=== PATIENT | female | born 1955 | race Hispanic/Latino ===

== ENCOUNTER 2024-03-15 14:20 | Outpatient (CLI) | payer BC | END 2024-03-15 14:21 | disposition home or self-care (01) | LOC: CSHCT 14:20 | PROVIDERS: ATTEND Family Medicine | DX: R31.0 Gross hematuria (principal); Z87.442 Personal history of urinary calculi; N20.0 Calculus of kidney; K44.9 Diaphragmatic hernia without obstruction or gangrene | CPT/HCPCS: 74176 ==

== ENCOUNTER 2024-12-20 14:54 | Outpatient (CLI) | payer BC | END 2024-12-20 14:55 | disposition home or self-care (01) | LOC: CSHMAMMO 14:54 | PROVIDERS: ATTEND Family Medicine | DX: Z78.0 Asymptomatic menopausal state (principal); M85.88 Other specified disorders of bone density and structure, other site | CPT/HCPCS: 77080 ==